=== PATIENT | female | born 1985 | race Caucasian/White ===

== ENCOUNTER 2020-12-25 09:16 | Emergency (ER) | payer OTHER ==
[~2020-12-25] VITALS: Ht 162.6 cm; Wt 74.8 kg
[2020-12-25] MEDS ORDERED: ALBU90OI INH (09:30)
[2020-12-25] MEDS ORDERED: AMOCLA875 PO (09:55)
== END 2020-12-25 10:06 | disposition home or self-care (01) ==
LOC: ER 09:16
DX: K04.01 Reversible pulpitis (principal); F17.200 Nicotine dependence, unspecified, uncomplicated; Z79.899 Other long term (current) drug therapy
CPT/HCPCS: 99282